=== PATIENT | male | born 1950 | race Caucasian/White ===

== ENCOUNTER 2017-08-27 05:56 | Inpatient (IN) | payer BC, OTHER ==
[~2017-08-27] VITALS: Ht 165.1 cm; Wt 95.7 kg
[2017-08-27 07:29] LABS: microscopic required? YES; urine erythrocyte TRACE (NEGATIVE)
[2017-08-27 07:36] LABS: AMPHETAMINE QUAL UR NONE DETECTED (NEG <=1000)
[2017-08-27 08:09] LABS: BASOPHIL % 0.2 % (0-2); PLATELET COUNT 194 x10^3mcL (130-400)
[2017-08-27 08:26] LABS: CALCIUM 9.2 mg/dL (8.5-10.1); CARBON DIOXIDE 25.6 mmol/L (21-32); CHLORIDE SERUM 103 mmol/L (98-107); CREATININE SERUM 1.1 mg/dL (0.7-1.3); GFR1 > 60 mL/min; GLUCOSE SERUM 148 mg/dL (74-106); POTASSIUM SERUM 3.8 mmol/L (3.5-5.1); SODIUM SERUM 138 mmol/L (136-145)
[2017-08-27 08:39] LABS: ALBUMIN 3.6 g/dL (3.4-5.0); ALKALINE PHOSPHATASE 97 U/L (46-116); ALT/SGPT 23 U/L (16-63); AMYLASE 33 U/L (25-115); AST/SGOT 21 U/L (15-37); BILIRUBIN TOTAL 0.7 mg/dL (0.20-1.00); CHOLESTEROL 184 mg/dL (<200); HDL CHOLESTEROL 54 mg/dL (40-60); LIPASE 105 IU/L (73-393); T4(THYROXINE) 12.3 ug/dL (4.7-13.3); TOTAL PROTEIN, SERUM 8.2 g/dL (6.4-8.2)
[2017-08-27] MEDS ORDERED: SIMVASTATIN10 M1 (09:49)
[2017-08-27] MEDS ORDERED: LISINOPRIL2.5 MG (09:49)
[2017-08-27] MEDS ORDERED: ATENOLOL25 MG (09:49)
[2017-08-27 11:09] LABS: CHOLESTEROL/HDL RATIO 3.5
[2017-08-27 11:26] VITALS: BP 136/97
[2017-08-27] MEDS ORDERED: TENORMIN100 MG PO (13:38)
[2017-08-27] MEDS ORDERED: ZOCOR40 MG PO (13:39)
[2017-08-27] MEDS ORDERED: BENAZEPRIL HYDR40 M1 PO (13:39)
[2017-08-27 18:08] VITALS: BP 132/85
[2017-08-27 20:58] VITALS: BP 123/79
[2017-08-28 05:11] VITALS: BP 117/78
[2017-08-28 07:23] LABS: BASOPHIL % 0.1 % (0-2); PLATELET COUNT 180 x10^3mcL (130-400); RED CELL DISTRIBUTION WIDTH 13.5 % (11.5-14.5)
[2017-08-28 07:38] LABS: CALCIUM 8.1 mg/dL (8.5-10.1); CARBON DIOXIDE 24.2 mmol/L (21-32); CHLORIDE SERUM 105 mmol/L (98-107); CREATININE SERUM 0.9 mg/dL (0.7-1.3); GFR1 > 60 mL/min; GLUCOSE SERUM 122 mg/dL (74-106); MAGNESIUM 1.9 mg/dL (1.8-2.4); PHOSPHOROUS 3.2 mg/dL (2.5-4.9); POTASSIUM SERUM 3.7 mmol/L (3.5-5.1); SODIUM SERUM 139 mmol/L (136-145)
[2017-08-28 09:19] VITALS: BP 119/70; BP 145/46
[2017-08-28 12:40] VITALS: BP 109/58
[2017-08-28 12:43] VITALS: Ht 165.1 cm; Wt 95.7 kg
[2017-08-28] MEDS ORDERED: FLO4 PO (17:00)
[2017-08-28] MEDS ORDERED: LEVAQUIN750 MG PO (17:00)
[2017-08-28 17:12] VITALS: BP 127/84
[2017-08-28 21:33] VITALS: BP 123/88
[2017-08-29 05:11] VITALS: BP 122/79
[2017-08-29 07:26] LABS: BASOPHIL % 0.2 % (0-2); PLATELET COUNT 195 x10^3mcL (130-400); RED CELL DISTRIBUTION WIDTH 13.6 % (11.5-14.5)
[2017-08-29 07:32] LABS: CALCIUM 8.9 mg/dL (8.5-10.1); CARBON DIOXIDE 26.7 mmol/L (21-32); CHLORIDE SERUM 105 mmol/L (98-107); GFR1 > 60 mL/min; GLUCOSE SERUM 113 mg/dL (74-106); SODIUM SERUM 139 mmol/L (136-145)
[2017-08-29 08:13] VITALS: BP 127/79
[2017-08-29 13:11] VITALS: BP 124/87
[2017-08-29] MEDS ORDERED: LAC PO (15:13)
[2017-08-29] MEDS ORDERED: PROS5 PO (15:13)
[2017-08-29 15:25] VITALS: BP 124/87
== END 2017-08-29 17:05 | disposition home or self-care (01) | DRG 725 ==
LOC: ED 05:56 → DU 09:58 → MU 09:58 → DU 11:16 → MU 08-28 09:32
PROVIDERS: Emergency Medicine; Family Medicine
DX: N40.1 Benign prostatic hyperplasia with lower urinary tract symptoms (principal); N17.0 Acute kidney failure with tubular necrosis; N39.0 Urinary tract infection, site not specified; R33.8 Other retention of urine; E11.9 Type 2 diabetes mellitus without complications; R80.9 Proteinuria, unspecified; R31.9 Hematuria, unspecified; Z68.35 Body mass index [BMI] 35.0-35.9, adult; I10 Essential (primary) hypertension; E78.00 Pure hypercholesterolemia, unspecified
CPT/HCPCS: 76770; 83880; 94150; J1956; J7030; Q0092

== ENCOUNTER 2018-10-23 21:22 | Emergency (ER) | payer BC, OTHER ==
[~2018-10-23] VITALS: Ht 172.7 cm; Wt 96.6 kg
[~2018-10-23 21:22] MED LIST: ATENOLOL25 MG; BENAZEPRIL HYDR40 M1 PO; FLO4 PO; LAC PO; LEVAQUIN750 MG PO; LISINOPRIL2.5 MG; PROS5 PO; SIMVASTATIN10 M1; TENORMIN100 MG PO; ZOCOR40 MG PO
[2018-10-23 21:30] VITALS: Ht 172.7 cm; Wt 96.6 kg
[2018-10-23 23:00] VITALS: BP 131/80
== END 2018-10-23 23:00 | disposition home or self-care (01) ==
LOC: ED 21:22
DX: J11.1 Influenza due to unidentified influenza virus with other respiratory manifestations (principal); I10 Essential (primary) hypertension; E78.00 Pure hypercholesterolemia, unspecified
CPT/HCPCS: 87804; Q0092